=== PATIENT | male | born 1970 | race Caucasian/White ===

== ENCOUNTER 2018-08-01 16:27 | Emergency (ER) | payer OTHER ==
[~2018-08-01] VITALS: Ht 172.7 cm; Wt 90.7 kg
[~2018-08-01 16:27] MED LIST: AMLODIPINE BESY10 MG PO; ASPIR 8181 MG PO; ATIVAN1 MG PO; BACTRIM DS TAB1 EACH PO; CELEXA40 MG PO; CITALOPRAM HBR40 MG PO; CLONAZEPAM0.5 MG PO; CLONAZEPAM1 MG PO; COZAAR100 MG PO; CYCLOBENZAPRINE5 MG PO; DOXYCYCLINE HY100 MG PO; GABAPENTIN100 MG PO; GABAPENTIN300 MG PO; GABAPENTIN600 MG PO; HUMALOG100 UNIT/1 SUB-Q; HUMALOG100 UNIT/2 SUB-Q; HUMALOG100 UNITS/ IV; HUMALOG100 UNITS/ SUB-Q; IBUPROFEN600 MG PO; LAMOTRIGINE25 MG PO; LANTUS100 UNITS/ SUB-Q; LATUDA60 MG PO; LEVOTHYROXINE75 MCG PO; LORAZEPAM0.5 MG PO; LOSARTAN POTAS100 MG PO; METFORMIN HCL1000 MG PO; MINIPRESS1 MG PO; NAPROXEN500 MG PO; NEURONTIN300 MG PO; NICORETTE2 MG MM; NITROSTAT0.4 MG SL; NORVASC10 MG PO; ONDANSETRON ODT8 MG PO; PRAZOSIN HCL1 MG PO; PROVENTIL HFA6.7 GM INH; QUETIAPINE FUM100 MG PO; QUETIAPINE FUM300 MG PO; QUETIAPINE FUMA50 MG PO; SEROQUEL100 MG PO; SEROQUEL300 MG PO; TIROSINT75 MCG PO; TRIACTIN50 MG/5 ML PO; VENTOLIN HFA18 GM INH; ZITHROMAX250 MG PO; ZOFRAN ODT4 MG SL
--- OUTSIDE RECORDS SUMMARY | 2018-08-01 16:30 | XMS ---
PreManage Notification: PRANAY THOMSON Security Narrow Gauge Engineer Events No recent Security Events currently on file CRITERIA MET - Group Notification - [facility] Has Care Guidelines CARE PROVIDERS NON ESTABLISHED Primary Care Current PHONE: [phone] DR BERTO MAXWELL Primary Care 07/06/2016-07/06/2016 PHONE: [phone] Guidelines Source: [facility] Guidelines Date: 12/14/2016 Care Coordination: PLEASE CONTACT PATIENTS PCP OFFICE AND ASK TO HAVE COMMUNITY HEALTH WORKER COME SEE HIM IN THE ED IF DURING WEEKDAY OFFICE HOURS. [phone] . THEY HAVE BEEN TRYING TO REACH HIM TO HELP HIM WITH COMING TO SEE PCP AND SERVICES. ENCOURAGE PATIENT TO USE PCP FOR FOLLOW UP AND NON-EMERGENT PROBLEMS. PLEASE ASK CASE MANAGEMENT TO SEE THIS PATIENT IF AVAILABLE. Additional care guidelines exist for the following facilities: [facility] ( 05/02/2016 ) [facility] ( 11/02/2015 ) [facility] ( 03/02/2015 ) [place] VISIT COUNT (12 MO.) 1 JIMMY Phillips TOTAL 1 NOTE: Visits indicate total known visits. ED/UCC VISIT TRACKING (12 MO.) 08/01/2018 16:28 JIMMY [place] [place] TYPE: Emergency COMPLAINT: - HIGH BLOOD SUGAR INPATIENT VISIT TRACKING (12 MO.) No inpatient visits to display in this time frame [id number]
[2018-08-01] MEDS ORDERED: HUMALOG100 UNITS/ SUB-Q (17:45)
[2018-08-01] MEDS ORDERED: GLUCOPHAGE500 MG PO (17:45)
[2018-08-01] MEDS ORDERED: LANTUS100 UNITS/ SUB-Q (17:45)
[2018-08-01] MEDS ORDERED: NEURONTIN300 MG PO (17:45)
== END 2018-08-01 18:02 | disposition home or self-care (01) ==
LOC: ED 16:27
DX: E11.65 Type 2 diabetes mellitus with hyperglycemia (principal); E11.9 Type 2 diabetes mellitus without complications; F17.200 Nicotine dependence, unspecified, uncomplicated; Z88.0 Allergy status to penicillin; Z88.5 Allergy status to narcotic agent; Z79.899 Other long term (current) drug therapy; Z79.4 Long term (current) use of insulin; Z79.82 Long term (current) use of aspirin
CPT/HCPCS: 99283

== ENCOUNTER 2018-08-04 06:26 | Emergency (ER) | payer OTHER ==
[~2018-08-04] VITALS: Ht 172.7 cm; Wt 90.7 kg
[~2018-08-04 06:26] MED LIST changes: +GLUCOPHAGE500 MG PO
--- OUTSIDE RECORDS SUMMARY | 2018-08-04 06:30 | XMS ---
PreManage Notification: PRANAY THOMSON Security Restrictive Preparation Operator Events No recent Security Events currently on file CRITERIA MET - Group Notification - [facility] - Has Care Guidelines - [facility] - 2 Visits in 30 Days CARE PROVIDERS NON ESTABLISHED Primary Care Current PHONE: [phone] DR BERTO MAXWELL Primary Care 07/06/2016-07/06/2016 PHONE: [phone] Guidelines Source: [facility] Guidelines Date: 12/14/2016 Care Coordination: PLEASE CONTACT PATIENTS PCP OFFICE AND ASK TO HAVE COMMUNITY HEALTH WORKER COME SEE HIM IN THE ED IF DURING WEEKDAY OFFICE HOURS. [phone] . THEY HAVE BEEN TRYING TO REACH HIM TO HELP HIM WITH COMING TO SEE PCP AND SERVICES. ENCOURAGE PATIENT TO USE PCP FOR FOLLOW UP AND NON-EMERGENT PROBLEMS. PLEASE ASK CASE MANAGEMENT TO SEE THIS PATIENT IF AVAILABLE. Additional care guidelines exist for the following facilities: [facility] ( 05/02/2016 ) [facility] ( 11/02/2015 ) [place] ( 03/02/2015 ) Care History Medical/Surgical 08/02/2018 [facility] - PATIENT CONTACT NUMBER IS NOT VALID- PLEASE HAVE PATIENT PROVIDE UPDATED CONTACT INFORMATION. - PLEASE PROVIDE CHW CONTACT # [phone] TO HELP PATIENT ESTABLISH CARE WITH A PROVIDER. OR CALL CHW DURING BUSINESS HOURS AND CHW WILL COME VISIT WITH PATIENT IF CHW IS AVAILABLE. E.D. VISIT COUNT (12 MO.) 2 [facility]. TOTAL 2 NOTE: Visits indicate total known visits. ED/UCC VISIT TRACKING (12 MO.) 08/04/2018 06:27 [facility] [place] TYPE: Emergency COMPLAINT: - RT LEG PAIN 08/01/2018 16:28 [facility] [place] TYPE: Emergency COMPLAINT: - HIGH BLOOD SUGAR DIAGNOSES: - Other superintendent container terminal (current) drug therapy - Allergy status to narcotic agent status - superintendent container terminal (current) use of aspirin - superintendent container terminal (current) use of insulin - Allergy status to penicillin - Nicotine dependence, unspecified, uncomplicated - Type 2 diabetes mellitus with hyperglycemia - Type 2 diabetes mellitus without complications INPATIENT VISIT TRACKING (12 MO.) No inpatient visits to display in this time frame [email or web address]
[2018-08-04] MEDS ORDERED: CLEOCIN HCL300 MG PO (07:14)
== END 2018-08-04 07:27 | disposition home or self-care (01) ==
LOC: ED 06:26
DX: L03.115 Cellulitis of right lower limb (principal); I25.2 Old myocardial infarction; E11.9 Type 2 diabetes mellitus without complications; Z86.19 Personal history of other infectious and parasitic diseases; Z86.73 Personal history of transient ischemic attack (TIA), and 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 residual deficits; F41.9 Anxiety disorder, unspecified; F43.10 Post-traumatic stress disorder, unspecified; I10 Essential (primary) hypertension; E03.9 Hypothyroidism, unspecified; F17.200 Nicotine dependence, unspecified, uncomplicated; Z88.0 Allergy status to penicillin; Z88.5 Allergy status to narcotic agent; Z79.4 Long term (current) use of insulin; Z79.899 Other long term (current) drug therapy
CPT/HCPCS: 99283

== ENCOUNTER 2018-08-06 10:14 | Emergency (ER) | payer OTHER ==
[~2018-08-06] VITALS: Ht 172.7 cm; Wt 90.7 kg
[~2018-08-06 10:14] MED LIST changes: +CLEOCIN HCL300 MG PO
--- OUTSIDE RECORDS SUMMARY | 2018-08-06 10:18 | XMS ---
PreManage Notification: PRANAY THOMSON Security Architect Events No recent Security Events currently on file CRITERIA MET - Group Notification - [facility] - Has Care Guidelines - [facility] - 2 Visits in 30 Days CARE PROVIDERS NON ESTABLISHED Primary Care Current PHONE: [phone] DR BERTO MAXWELL Primary Care 07/06/2016-07/06/2016 PHONE: [phone] Guidelines Source: [facility] Guidelines Date: 12/14/2016 Care Coordination: PLEASE CONTACT PATIENTS PCP OFFICE AND ASK TO HAVE COMMUNITY HEALTH WORKER COME SEE HIM IN THE ED IF DURING WEEKDAY OFFICE HOURS. [phone] . THEY HAVE BEEN TRYING TO REACH HIM TO HELP HIM WITH COMING TO SEE PCP AND SERVICES. ENCOURAGE PATIENT TO USE PCP FOR FOLLOW UP AND NON-EMERGENT PROBLEMS. PLEASE ASK CASE MANAGEMENT TO SEE THIS PATIENT IF AVAILABLE. Additional care guidelines exist for the following facilities: [facility] ( 05/02/2016 ) [facility] ( 11/02/2015 ) [place] ( 03/02/2015 ) Care History Medical/Surgical 08/02/2018 [facility] - PATIENT CONTACT NUMBER IS NOT VALID- PLEASE HAVE PATIENT PROVIDE UPDATED CONTACT INFORMATION. - PLEASE PROVIDE CHW CONTACT # [phone] TO HELP PATIENT ESTABLISH CARE WITH A PROVIDER. OR CALL CHW DURING BUSINESS HOURS AND CHW WILL COME VISIT WITH PATIENT IF CHW IS AVAILABLE. E.D. VISIT COUNT (12 MO.) 3 [facility]. TOTAL 3 NOTE: Visits indicate total known visits. ED/UCC VISIT TRACKING (12 MO.) 08/06/2018 10:15 [facility] [place] TYPE: Emergency COMPLAINT: - CONSTIPATION 08/04/2018 06:27 [facility] [place] TYPE: Emergency COMPLAINT: - RT LEG PAIN 08/01/2018 16:28 [facility] [place] TYPE: Emergency COMPLAINT: - HIGH BLOOD SUGAR DIAGNOSES: - Other buttermaker (current) drug therapy - Allergy status to narcotic agent status - nursing home (current) use of aspirin - nursing home (current) use of insulin - Allergy status to penicillin - Nicotine dependence, unspecified, uncomplicated - Type 2 diabetes mellitus with hyperglycemia - Type 2 diabetes mellitus without complications INPATIENT VISIT TRACKING (12 MO.) No inpatient visits to display in this time frame [id number]
[2018-08-06] MEDS ORDERED: ENULOSE10 GM/15 M PO (17:16)
== END 2018-08-06 17:42 | disposition home or self-care (01) ==
LOC: ED 10:14
DX: K59.00 Constipation, unspecified (principal); I25.2 Old myocardial infarction; E11.9 Type 2 diabetes mellitus without complications; Z86.73 Personal history of transient ischemic attack (TIA), and 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 residual deficits; F43.10 Post-traumatic stress disorder, unspecified; F41.9 Anxiety disorder, unspecified; I10 Essential (primary) hypertension; E03.9 Hypothyroidism, unspecified; F17.200 Nicotine dependence, unspecified, uncomplicated; Z88.0 Allergy status to penicillin; Z88.5 Allergy status to narcotic agent; Z79.899 Other long term (current) drug therapy; Z79.4 Long term (current) use of insulin; Z79.82 Long term (current) use of aspirin
CPT/HCPCS: 74022; 99283-25

== ENCOUNTER 2018-08-19 12:08 | Emergency (ER) | payer OTHER ==
[~2018-08-19] VITALS: Ht 172.7 cm; Wt 90.7 kg
--- OUTSIDE RECORDS SUMMARY | ~2018-08-19 | XMS | Clinical Summary ---
Demographics + + + | Address | [address] | | | [place] [address] | + + + | Home Phone | | + + + | Preferred Language | Unknown | + + + | Marital Status | Single | + + + | Zoroastrianism Affiliation | BAP | + + + [...] Team Providers + +------+ + | Care Jalousie Installer Name | Role | Phone | + +------+ + | Anne Lew UNEMPLOYMENT CLAIMS ADJUDICATOR | PP | Unavailable | + +------+ + Source Comments WILLIAM is fully live on both [facility] Ambulatory and [facility] InPatient.[facility] Allergies No Known Allergies Current Medications + [...] | OHP | xxxxxxxx | Medica | [phone] [address] [address] | | | PLUS | | id | [phone] | [place] [address] | | | OPEN | | | [...] | derik | | | [phone] | + +--------+ +--------+ + +"
--- OUTSIDE RECORDS SUMMARY | ~2018-08-19 | XMS | Clinical Summary ---
Demographics + + + | Address | [address] | | | [place] [address] | + + + | Home Phone | | + + + | Preferred Language | Unknown | + + + | Marital Status | Single | + + + | Tenriism Affiliation | BAP | + + + [...] Team Providers + +------+ + | Care Target Trimmer Name | Role | Phone | + +------+ + | Anne Lew HOME HEALTH ASSISTANT | PP | Unavailable | + +------+ + Source Comments WILLIAM is fully live on both [facility] and [facility] In[facility] Allergies No Known Allergies Current Medications + [...] | OHP | xxxxxxxx | Medica | [phone] [address] [address] | | | PLUS | | id | [phone] | [place] [address] | | | OPEN | | | [...] | derik | | | [phone] | + +--------+ +--------+ + +"
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
--- OUTSIDE RECORDS SUMMARY | ~2018-08-19 | XMS | Clinical Summary ---
Demographics + + + | Address | [address] | | | [place] [address] | + + + | Home Phone | | + + + | Preferred Language | Unknown | + + + | Marital Status | Single | + + + | Mormonism Affiliation | [id number] | + + + | Race | Unknown | + + + | Ethnic Group | Unknown | + + + Author + + + | Author | [facility] | | | and [place] | + + + | Organization | [facility] | | | and [place] | + + + | Address | Unknown | + + + | Phone | Unavailable | + + + Support + + + + + | Name | Relationship | Address | Phone | + + + + + | None,Per Pt | ECON | [address] | | | | | [place] [address] | | + + + + + Care Team Providers + +------+ + | Care Route Manager Name | Role | Phone | + [...] | | | | | | uncontrolled ([facility]) | | | | | | | [...] | [employer] | MODA | [id number] | Medica | [phone] | | [...] | | al/Fam | | 1971 | [phone] | [place] | | | derik | | | [phone] | + +--------+ +--------+ + +
[~2018-08-19 12:08] MED LIST changes: +ENULOSE10 GM/15 M PO
--- OUTSIDE RECORDS SUMMARY | 2018-08-19 12:10 | XMS ---
PreManage Notification: PRANAY THOMSON Security Cell Efficiency Supervisor Events No recent Security Events currently on file CRITERIA MET - Group Notification - [facility] - Has Care Guidelines - [facility] - 2 Visits in 30 Days CARE PROVIDERS Enrique [facility]: Pulmonary Disease 08/06/2018-Current PHONE: Unknown NON ESTABLISHED Primary Care Current PHONE: [phone] DR BERTO MAXWELL Primary Care 07/06/2016-07/06/2016 PHONE: [phone] Guidelines Source: [facility] Guidelines Date: 12/14/2016 Care Coordination: PLEASE CONTACT PATIENTS PCP OFFICE AND ASK TO HAVE COMMUNITY HEALTH WORKER COME SEE HIM IN THE ED IF DURING WEEKDAY OFFICE HOURS. [phone] . THEY HAVE BEEN TRYING TO REACH HIM TO HELP HIM WITH COMING TO SEE PCP AND SERVICES. ENCOURAGE PATIENT TO USE PCP FOR FOLLOW UP AND NON-EMERGENT PROBLEMS. PLEASE ASK CASE MANAGEMENT TO SEE THIS PATIENT IF AVAILABLE. Additional care guidelines exist for the following facilities: [facility] ( 05/02/2016 ) [facility] ( 11/02/2015 ) [facility] ( 03/02/2015 ) Care History Medical/Surgical 08/06/2018 [facility] Patient has an Establishing Care Appointment with \T\Lauren at the Clinic on August 16 at 3:00 pm 08/06/2018 [facility] - PATIENT HAS AN APT TO ESTABLISH CARE WITH DR GEORGE ON 08/16/18 @ 3:00PM. - Patient is currently established with [facility]. If patient is seen in the ED during business hours. Please contact CHWs at [facility]. - Care Recommendation: This patient has had 5 or more Emergency Department visits in the last 12 months.\T\nbsp; Patient requires education on the scope and purpose of the ED as an acute care provider not a Primary Care Provider and should not be utilized for chronic conditions.\T\nbsp; These are guidelines and the provider should exercise clinical judgment when providing care. 08/02/2018 [facility] - PATIENT CONTACT NUMBER IS NOT VALID- PLEASE HAVE PATIENT PROVIDE UPDATED CONTACT INFORMATION. - PLEASE PROVIDE CHW CONTACT # [phone] TO HELP PATIENT ESTABLISH CARE WITH A PROVIDER. OR CALL CHW DURING BUSINESS HOURS AND CHW WILL COME VISIT WITH PATIENT IF CHW IS AVAILABLE. E.D. VISIT COUNT (12 MO.) [address] [facility] TOTAL 5 NOTE: Visits indicate total known visits. ED/UCC VISIT TRACKING (12 MO.) 08/19/2018 12:08 [facility] [place] TYPE: Emergency COMPLAINT: - R HIP ABSCESS 08/12/2018 07:34 [facility] [place] TYPE: Emergency COMPLAINT: - FALL DIAGNOSES: - Nicotine dependence, unspecified, uncomplicated - Personal history of other infectious and parasitic diseases - Hypothyroidism, unspecified - Allergy status to narcotic agent status - Fall on same level from slipping, tripping and stumbling with subsequent striking against unspecified object, initial encounter - ferry terminal supervisor (current) use of insulin - 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 therapy - Strain of muscle, fascia and tendon of lower back, initial encounter - Allergy status to penicillin - Old myocardial infarction - Low back pain - Other specified anxiety disorders - Type 2 diabetes mellitus without complications - Essential (primary) hypertension 08/06/2018 10:15 [facility] [place] TYPE: Emergency COMPLAINT: - CONSTIPATION DIAGNOSES: - Allergy status to penicillin - long-term (current) use of aspirin - Hypothyroidism, unspecified - Old myocardial infarction - Post-traumatic stress disorder, unspecified - long-term (current) use of insulin - Type 2 diabetes mellitus without complications - Personal history of transient ischemic attack (TIA), and 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 residual deficits - 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 therapy - Anxiety disorder, unspecified - Constipation, unspecified - Nicotine dependence, unspecified, uncomplicated - Essential (primary) hypertension - Allergy status to narcotic agent status 08/04/2018 06:27 [facility] [place] TYPE: Emergency COMPLAINT: - RT LEG PAIN DIAGNOSES: - Allergy status to narcotic agent status - Nicotine dependence, unspecified, uncomplicated - Post-traumatic stress disorder, unspecified - Allergy status to penicillin - Old myocardial infarction - ferry terminal supervisor (current) use of insulin - Personal history of other infectious and parasitic diseases - Personal history of transient ischemic attack (TIA), and 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 residual deficits - Essential (primary) hypertension - Anxiety disorder, unspecified - Other usp (current) drug therapy - Type 2 diabetes mellitus without complications - Cellulitis of right lower limb - Hypothyroidism, unspecified 08/01/2018 16:28 [facility] [place] TYPE: Emergency COMPLAINT: - HIGH BLOOD SUGAR DIAGNOSES: - 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 therapy - Allergy status to narcotic agent status - long-term (current) use of aspirin - long-term (current) use of insulin - Allergy status to penicillin - Nicotine dependence, unspecified, uncomplicated - Type 2 diabetes mellitus with hyperglycemia - Type 2 diabetes mellitus without complications INPATIENT VISIT TRACKING (12 MO.) No inpatient visits to display in this time frame [id number]
[2018-08-19] MEDS ORDERED: BACTRIM DS TAB1 EACH PO (13:44)
== END 2018-08-19 13:56 | disposition home or self-care (01) ==
LOC: ED 12:08
DX: L98.499 Non-pressure chronic ulcer of skin of other sites with unspecified severity (principal); B95.62 Methicillin resistant Staphylococcus aureus infection as the cause of diseases classified elsewhere; I25.2 Old myocardial infarction; E11.9 Type 2 diabetes mellitus without complications; Z86.19 Personal history of other infectious and parasitic diseases; Z86.73 Personal history of transient ischemic attack (TIA), and 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 residual deficits; F43.10 Post-traumatic stress disorder, unspecified; F41.9 Anxiety disorder, unspecified; I10 Essential (primary) hypertension; E03.9 Hypothyroidism, unspecified; F17.200 Nicotine dependence, unspecified, uncomplicated; Z88.0 Allergy status to penicillin; Z88.5 Allergy status to narcotic agent; Z79.4 Long term (current) use of insulin; Z79.899 Other long term (current) drug therapy; Z79.82 Long term (current) use of aspirin
CPT/HCPCS: 99282

== ENCOUNTER → 2018-09-03 | Emergency (ER) | payer OTHER ==
[~2018-09-03] VITALS: Ht 172.7 cm; Wt 90.7 kg
--- OUTSIDE RECORDS SUMMARY | ~2018-09-03 | XMS | Clinical Summary ---
Demographics + + + | Address | [address] | | | [place] [address] | + + + | Home Phone | | + + + | Preferred Language | Unknown | + + + | Marital Status | Single | + + + | Restorationist Affiliation | [id number] | + + + | Race | Unknown | + + + | Ethnic Group | Unknown | + + + Author + + + | Author | [facility] | | | and Melvinana | + + + | Organization | [facility] | | [...] [address]ardo | | | | | [place] [address] | | + + + + + Care Team Providers + +------+ + | Care Activities Attendant Name | Role | Phone | + [...] | | | | | | uncontrolled ([facility]) | | | | | | | [...] | [employer] | MODA | [id number] | [employer]ica | [phone] | | [...] | | al/Fam | | 1971 | [phone] | [place] | | | derik | | | [phone] | [phone] | + +--------+ +--------+ + +
--- OUTSIDE RECORDS SUMMARY | ~2018-09-03 | XMS | Clinical Summary ---
Demographics + + + | Address | [address] | | | [place] [address] | + + + | Home Phone | | + + + | Preferred Language | Unknown | + + + | Marital Status | Single | + + + | Caodaism Affiliation | [id number] | + + + [...] Eduardo | | | | | [place] [address] | | + + + + + Care Team Providers + +------+ + | Care Psychiatric Social Worker Supervisor Name | Role | Phone | + [...] | | | | | | uncontrolled ([facility]) | | | | | [...] | [employer] | MODA | [id number] | Medica | [phone] | | [...] | | al/Fam | | 1971 | [phone] | [place] | | | derik | | | [phone] | [phone] | + +--------+ +--------+ + +
--- OUTSIDE RECORDS SUMMARY | ~2018-09-03 | XMS | Clinical Summary ---
Demographics + + + | Address | [address] | | | [place] [address] | + + + | Home Phone | | + + + | Preferred Language | Unknown | + + + | Marital Status | Single | + + + | Judaism Affiliation | BAP | + + + [...] Team Providers + +------+ + | Care Superintendent Distribution Name | Role | Phone | + +------+ + | Anne Lew MINING TEACHER | PP | Unavailable | + +------+ + Source Comments WILLIAM is fully live on both [facility] Ambulatory and [facility] InPatient.[facility] Allergies No Known Allergies [...] | OHP | xxxxxxxx | Medica | [phone] | [address] [address] | | | PLUS | | id | [phone] | [place] [address] | | | OPEN | | | [...] | derik | | | [phone] | [phone] | + +--------+ +--------+ + +"
--- OUTSIDE RECORDS SUMMARY | ~2018-09-03 | XMS | Clinical Summary ---
Demographics + + + | Address | [address] | | | [place] [address] | + + + | Home Phone | | + + + | Preferred Language | Unknown | + + + | Marital Status | Single | + + + | Confucianist Affiliation | BAP | + + + [...] Team Providers + +------+ + | Care Studio Potter Name | Role | Phone | + +------+ + | Anne Lew INKER AND OPAQUER | PP | Unavailable | + +------+ + Source Comments WILLIAM is fully live on both [facility] Amb[facility] and [facility] InPatient.[facility] Allergies No Known [...] | OHP | xxxxxxxx | Medica | [phone] | [address] [address] | | | PLUS | | id | [phone] | [place] [address] | | | OPEN | | | [...] | derik | | | [phone] | [phone] | + +--------+ +--------+ + +"
--- OUTSIDE RECORDS SUMMARY | 2018-09-03 16:06 | XMS ---
PreManage Notification: PRANAY THOMSON Security Wastewater Manager Events No recent Security Events currently on file CRITERIA MET - Group Notification - 6 ED Visits in 6 Months - [facility] - Has Care Guidelines - [facility] - 2 Visits in 30 Days CARE PROVIDERS Enrique George Internal Medicine: Pulmonary Disease 08/06/2018-Current PHONE: Unknown NON ESTABLISHED Primary Care Current PHONE: [phone] DR BERTO MAXWELL Primary Care 07/06/2016-07/06/2016 PHONE: [phone] Guidelines Source: [facility] Guidelines Date: 12/14/2016 Care Coordination: PLEASE CONTACT PATIENTS PCP OFFICE AND ASK TO HAVE COMMUNITY HEALTH WORKER COME SEE HIM IN THE ED IF DURING WEEKDAY OFFICE HOURS. [phone] . THEY HAVE BEEN TRYING TO REACH HIM TO HELP HIM WITH COMING TO SEE PCP AND SERVICES. ENCOURAGE PATIENT TO USE PCP FOR FOLLOW UP AND NON-EMERGENT PROBLEMS. PLEASE ASK CASE MANAGEMENT TO SEE THIS PATIENT IF AVAILABLE. Additional care guidelines exist for the following facilities: [facility] ( 05/02/2016 ) [facility] ( 11/02/2015 ) [facility] ( 03/02/2015 ) Care History Medical/Surgical 08/06/2018 [facility] - PATIENT HAS AN APT TO ESTABLISH CARE WITH DR GEORGE ON 08/16/18 @ 3:00PM. - Patient is currently established with [facility]. If patient is seen in the ED during business hours. Please contact CHWs at [facility]. - Care Recommendation: This patient has had 5 or more Emergency Department visits in the last 12 months.\T\nbsp; Patient requires education on the scope and purpose of the ED as an acute care provider not a Primary Care Provider and should not be utilized for chronic conditions.\T\nbsp; These are guidelines and the provider should exercise clinical judgment when providing care. 08/02/2018 [facility] - PATIENT CONTACT NUMBER IS NOT VALID- PLEASE HAVE PATIENT PROVIDE UPDATED CONTACT INFORMATION. - PLEASE PROVIDE CHW CONTACT # [phone] TO HELP PATIENT ESTABLISH CARE WITH A PROVIDER. OR CALL CHW DURING BUSINESS HOURS AND CHW WILL COME VISIT WITH PATIENT IF CHW IS AVAILABLE. E.D. VISIT COUNT (12 MO.) 6 [facility] TOTAL 6 NOTE: Visits indicate total known visits. ED/UCC VISIT TRACKING (12 MO.) 09/03/2018 15:35 [facility] [place] TYPE: Emergency COMPLAINT: - BLOOD SUGAR PROBLEM 08/19/2018 12:08 [facility] [place] TYPE: Emergency COMPLAINT: - R HIP ABSCESS DIAGNOSES: - Anxiety disorder, unspecified - Pain in right hip - Personal history of other infectious and parasitic diseases - Hypothyroidism, unspecified - Post-traumatic stress disorder, unspecified - nursing home (current) use of insulin - Allergy status to penicillin - Essential (primary) hypertension - Other intermediate card tender (current) drug therapy - Non-pressure chronic ulcer of skin of other sites with unspecified severity - Type 2 diabetes mellitus without complications - Allergy status to narcotic agent status - Nicotine dependence, unspecified, uncomplicated - Methicillin resistant Staphylococcus aureus infection as the cause of diseases classified elsewhere - Personal history of transient ischemic attack (TIA), and 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 residual deficits - Old myocardial infarction - salvage determiner (current) use of aspirin 08/12/2018 07:34 [facility] [place] TYPE: Emergency COMPLAINT: - FALL DIAGNOSES: - Nicotine dependence, unspecified, uncomplicated - Personal history of other infectious and parasitic diseases - Hypothyroidism, unspecified - Allergy status to narcotic agent status - Fall on same level from slipping, tripping and stumbling with subsequent striking against unspecified object, initial encounter - salvage determiner (current) use of insulin - Other intermediate card tender (current) drug therapy - Strain of muscle, fascia and tendon of lower back, initial encounter - Allergy status to penicillin - Old myocardial infarction - Low back pain - Other specified anxiety disorders - Type 2 diabetes mellitus without complications - Essential (primary) hypertension 08/06/2018 10:15 [facility] [place] TYPE: Emergency COMPLAINT: - CONSTIPATION DIAGNOSES: - Allergy status to penicillin - nursing home (current) use of aspirin - Hypothyroidism, unspecified - Old myocardial infarction - Post-traumatic stress disorder, unspecified - salvage determiner (current) use of insulin - Type 2 diabetes mellitus without complications - Personal history of transient ischemic attack (TIA), and 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 residual deficits - Other fpc (current) drug therapy - Anxiety disorder, unspecified [...] to penicillin - Old myocardial infarction - salvage determiner (current) use of insulin - Personal history of other infectious and parasitic diseases - Personal history of transient ischemic attack (TIA), and 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 residual deficits - Essential (primary) hypertension - Anxiety disorder, unspecified - Other intermediate card tender (current) drug therapy - Type 2 diabetes mellitus without complications - Cellulitis of right lower limb - Hypothyroidism, unspecified 08/01/2018 16:28 [facility] [place] TYPE: Emergency COMPLAINT: - HIGH BLOOD SUGAR DIAGNOSES: - Other fpc (current) drug therapy - Allergy status to narcotic agent status - salvage determiner (current) use of aspirin - salvage determiner (current) use of insulin - Allergy status to penicillin - Nicotine dependence, unspecified, uncomplicated - Type 2 diabetes mellitus with hyperglycemia - Type 2 diabetes mellitus without complications INPATIENT VISIT TRACKING ( MO.) No inpatient visits to display in this time frame [id number]
== END ==
LOC: ED 15:34
DX: E11.65 Type 2 diabetes mellitus with hyperglycemia (principal); I25.2 Old myocardial infarction; F43.10 Post-traumatic stress disorder, unspecified; Z86.73 Personal history of transient ischemic attack (TIA), and 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 residual deficits; I10 Essential (primary) hypertension; E03.9 Hypothyroidism, unspecified; F17.200 Nicotine dependence, unspecified, uncomplicated; Z88.0 Allergy status to penicillin; Z88.5 Allergy status to narcotic agent; Z79.4 Long term (current) use of insulin; Z79.82 Long term (current) use of aspirin; Z79.899 Other long term (current) drug therapy
CPT/HCPCS: 80053; 81001; 82010; 82803; 85025; 96361; 96374; 96376; 99283-25; G0480; J1815; J7030

== ENCOUNTER 2018-10-05 08:19 | Emergency (ER) | payer OTHER ==
[~2018-10-05] VITALS: Ht 172.7 cm; Wt 90.7 kg
--- OUTSIDE RECORDS SUMMARY | ~2018-10-05 | XMS | Clinical Summary ---
Demographics + + + | Address | [address] | | | [place] [address] | + + + | Home Phone | | + + + | Preferred Language | Unknown | + + + | Marital Status | Single | + + + | Hoahaoism Affiliation | BAP | + + + | Race | White | + + + | Ethnic Group | Not or | + + + Author + + + | Author | [facility] | + + + | Organization | [facility] | + + + | Address | Unknown | + + + | Phone | Unavailable | + + + Support + + +---------+ + | Name | Relationship | Address | Phone | + + +---------+ + | None, None | ECON | Unknown | Unavailable | + + +---------+ + Care Team Providers + +------+ + | Care Dna Analyst Name | Role | Phone | + +------+ + | Anne Lew SALESPERSON WOMEN'S DRESSES | PP | Unavailable | + +------+ + Source Comments WILLIAM is fully live on both [facility] Amb[facility] and [facility] InPatient.[facility] Allergies No Known Allergies Current Medications + + +--------+---------+------+------+-------+ | Prescription | Sig. | Disp. | Refills | Star | End | Statu | | | | | | t | Date | s | | | | | | Date | | | + + +--------+---------+------+------+-------+ | insulin glargine | Inject 40 Units | | | | | Activ | | 100 unit/mL | under the skin | | | | | e | | subcutaneous | (SUBC) once daily in | | | | | | | solution | the morning. | | | | | | + + +--------+---------+------+------+-------+ | insulin lispro 100 | Inject 8-10 Units | | | | | Activ | | unit/mL | under the skin | | | | | e | | subcutaneous | (SUBC) three times | | | | | | | solution | daily before meals. | | | | | | + + +--------+---------+------+------+-------+ | losartan 100 mg | Take 100 mg by mouth | | | | | Activ | | oral tablet | once daily. | | | | | e | + + +--------+---------+------+------+-------+ | amLODIPine 10 mg | Take 10 mg by mouth | | | | | Activ | | oral tablet | once daily. | | | | | e | + + +--------+---------+------+------+-------+ | levothyroxine 75 | Take 75 mcg by mouth | | | | | Activ | | mcg oral tablet | once daily. | | | | | e | + + +--------+---------+------+------+-------+ | aspirin chewable | Take 81 mg by mouth | | | | | Activ | | 81 mg oral | once daily. | | | | | e | | tablet,chewable | | | | | | | + + +--------+---------+------+------+-------+ | gabapentin 100 mg | Take 900 mg by mouth | | | | | Activ | | oral capsule | two times daily. | | | | | e | + + +--------+---------+------+------+-------+ | QUEtiapine 300 mg | Take 300 mg by mouth | | | | | Activ | | oral tablet | once daily at | | | | | e | | | bedtime. | | | | | | + + +--------+---------+------+------+-------+ | clonazePAM 1 mg | Take 1 mg by mouth | | | | | Activ | | oral tablet | three times daily. | | | | | e | + + +--------+---------+------+------+-------+ | citalopram 40 mg | Take 40 mg by mouth | | | | | Activ | | oral tablet | once daily. | | | | | e | + + +--------+---------+------+------+-------+ | oxyCODONE, | Take 1-2 tablets by | 20 | 0 | 05/0 | | Activ | | immediate release, 5 | mouth every six | tablet | | 02/22 | | e | | mg oral tablet | hours as needed. | | | 15 | | | + + +--------+---------+------+------+-------+ Active Problems + + + | Problem | Noted Date | + + + | Abscess of right hand | 10/10/2014 | + + + Social History + +-------+ +--------+------+ | Tobacco Use | Types | Packs/Day | Years | Date | | | | | Used | | + +-------+ +--------+------+ | Current Every Day | | | | | | Smoker | | | | | + +-------+ +--------+------+ + +---+---+---+ | Smokeless Tobacco: | | | | | Current User | | | | + +---+---+---+ + + | Tobacco Cessation: Ready to Quit: No; Counseling Given: Yes | + + + + +---------+ + | Alcohol Use | Drinks/We | oz/Week | Comments | | | ek | | | + + +---------+ + | Yes | | | occasional | + + +---------+ + + + + | Sex Assigned at | Date Recorded | | | | + + + | Not on file | | + + + Last Filed Vital Signs + + + + | Vital Sign | Reading | Time Taken | + + + + | Blood Pressure | 128/83 | 10/17/2014 3:32 PM PDT | + + + + | Pulse | 57 | 10/17/2014 3:32 PM PDT | + + + + | Temperature | 36.8 C (98.2 F) | 10/17/2014 3:32 PM PDT | + + + + | Respiratory Rate | 16 | 10/17/2014 3:32 PM PDT | + + + + | Oxygen Saturation | 95% | 10/17/2014 3:32 PM PDT | + + + + | Inhaled Oxygen | - | - | | Concentration | | | + + + + | Weight | 99.8 kg (220 lb) | 10/17/2014 1:36 PM PDT | + + + + | Height | - | - | + + + + | Body Mass Index | - | - | + + + + Plan of Treatment Not on file Results Not on filefrom Last 3 Months Insurance + +--------+ +--------+ + + | Payer | Benefi | Subscriber | Type | Phone | Address | | | t Plan | ID | | | | | | / | | | | | | | Group | | | | | + +--------+ +--------+ + + | [place] | OHP | xxxxxxxx | Med[employer] | [phone] [address] [address] | | | PLUS | | id | [phone] | [place] [address] | | | OPEN | | | | | | | CARD | | | | | + +--------+ +--------+ + + + +--------+ +--------+ + + | Guarantor Name | Accoun | Relation to | Date | Phone | Billing Address | | | t Type | Patient | of | | | | | | | | | | + +--------+ +--------+ + + | [employer] | Person | Self [birth year] Home: | [address] | | | al/Fam | | 1971 | [phone] | [address] [place] | | | [place] | | | [phone] | [phone] | + +--------+ +--------+ + +"
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
--- OUTSIDE RECORDS SUMMARY | ~2018-10-05 | XMS | Clinical Summary ---
Demographics + + + | Address | [address] | | | [place] [address] | + + + | Home Phone | | + + + | Preferred Language | Unknown | + + + | Marital Status | Single | + + + | Roman Catholic Affiliation | 1009 | + + + | Race | Unknown | + + + | Ethnic Group | Unknown | + + + Author + + + | Author | [facility] | | | and [place] | + + + | Organization | [facility] | | | and [place] | + + + | Address | Unknown | + + + | Phone | Unavailable | + + + Support + + + + + | Name | Relationship | Address | Phone | + + + + + | None,Per Pt | ECON | [address] | | | | | [place] [address] | | + + + + + Care Team Providers + +------+ + | Care Title I Director Name | Role | Phone | + [...] | | | | | | uncontrolled ([facility]) | | | | | | | [...] | [employer] | MODA | [id number] | | [phone] | | Medica | [...] preethi/Cl | | 1971 | [phone] | [facility] [place] | | | derik | | | 4 ([place]) | [address] | + +--------+ +--------+ + + Advance Directives Patient has advance care planning documents on file. For more information, please contact:[facility] and [facility] [place] [address]
--- OUTSIDE RECORDS SUMMARY | ~2018-10-05 | XMS | Clinical Summary ---
Demographics + + + | Address | [address] | | | [place] [address] | + + + | Home Phone | | + + + | Preferred Language | Unknown | + + + | Marital Status | Single | + + + | Evangelical Affiliation | BAP | + + + [...] Team Providers + +------+ + | Care Ice Skating Instructor Name | Role | Phone | + +------+ + | Anne Lew ASPHALT HEATER OPERATOR | PP | Unavailable | + +------+ + Source Comments WILLIAM is fully live on both [facility] Ambulatory and [facility] InPatient.[facility] Allergies No Known Allergies Current Medications [...] | OHP | [phone] | Medica | [phone] [address] [address] | | | PLUS | | id | [phone] | [place] [address] | | | OPEN | | | [...] | derik | | | [phone] | + +--------+ +--------+ + +"
--- OUTSIDE RECORDS SUMMARY | 2018-10-05 08:22 | XMS ---
PreManage Notification: PRANAY THOMSON Security Nurse Rn Bsn Events No recent Security Events currently on file CRITERIA MET - Group Notification - 6 ED Visits in 6 Months - [facility] - Has Care Guidelines CARE PROVIDERS Enrique George Internal Medicine: Pulmonary Disease 08/06/2018-Current PHONE: Unknown NON ESTABLISHED Primary Care Current PHONE: [phone] DR BERTO MAXWELL Primary Care 07/06/2016-07/06/2016 PHONE: [phone] Guidelines Source: [facility] Guidelines Date: 12/14/2016 Care Coordination: PLEASE CONTACT PATIENTS PCP OFFICE AND ASK TO HAVE COMMUNITY HEALTH WORKER COME SEE HIM IN THE ED IF DURING WEEKDAY OFFICE HOURS. [phone] . THEY HAVE BEEN TRYING TO REACH HIM TO HELP HIM WITH COMING TO SEE PCP AND SERVICES. ENCOURAGE PATIENT TO USE PCP FOR FOLLOW UP AND NON-EMERGENT PROBLEMS. PLEASE ASK CASE MANAGEMENT TO SEE THIS PATIENT IF AVAILABLE. Additional care guidelines exist for the following facilities: [facility] ( 05/02/2016 ) [facility] ( 11/02/2015 ) [facility] ( 03/02/2015 ) Care History Medical/Surgical 08/06/2018 [facility] - PATIENT HAS AN APT TO ESTABLISH CARE WITH DR GEORGE ON 08/16/18 @ 3:00PM. - Patient is currently established with [facility]. If patient is seen in the ED during business hours. Please contact CHWs at [facility]. - Care Recommendation: This patient has had [...] INFORMATION. - PLEASE PROVIDE CHW CONTACT # [phone] TO HELP PATIENT ESTABLISH CARE WITH A PROVIDER. OR CALL CHW DURING BUSINESS HOURS AND CHW WILL COME VISIT WITH PATIENT IF CHW IS AVAILABLE. E.D. VISIT COUNT (12 MO.) 7 [facility] TOTAL 7 NOTE: Visits indicate total known visits. ED/UCC VISIT TRACKING (12 MO.) 10/05/2018 08:20 [facility] [place] TYPE: Emergency COMPLAINT: - CONSTIPATION 09/03/2018 15:35 [facility] [place] TYPE: Emergency COMPLAINT: - BLOOD SUGAR PROBLEM DIAGNOSES: - Nicotine dependence, unspecified, uncomplicated - Hypothyroidism, unspecified - Essential (primary) hypertension - Type 2 diabetes mellitus with hyperglycemia - emt intermediate (current) use of aspirin - emt intermediate (current) use of insulin - Old myocardial infarction - Other penitentiary (current) drug therapy - Allergy status to narcotic agent status - Personal history of transient ischemic attack (TIA), and 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 residual deficits - Allergy status to penicillin - Post-traumatic stress disorder, unspecified 08/19/2018 12:08 [facility] [place] TYPE: Emergency COMPLAINT: - R HIP ABSCESS DIAGNOSES: - Anxiety disorder, unspecified - Pain in right hip - Personal history of other infectious and parasitic diseases - Hypothyroidism, unspecified - Post-traumatic stress disorder, unspecified - [facility] (current) use of insulin - Allergy status to penicillin - Essential (primary) hypertension - Other penitentiary (current) drug therapy - Non-pressure chronic ulcer [...] residual deficits - Old myocardial infarction - emt intermediate (current) use of aspirin 08/12/2018 07:34 [facility] [place] TYPE: Emergency COMPLAINT: - FALL DIAGNOSES: - Nicotine dependence, unspecified, uncomplicated - Personal history of other infectious and parasitic diseases - Hypothyroidism, unspecified - Allergy status to narcotic agent status - Fall on same level from slipping, tripping and stumbling with subsequent striking against unspecified object, initial encounter - [facility] (current) use of insulin - Other penitentiary (current) drug therapy - Strain of muscle, fascia and tendon of lower back, initial encounter - Allergy status to penicillin - Old myocardial infarction - Low back pain - Other specified anxiety disorders - Type 2 diabetes mellitus without complications - Essential (primary) hypertension 08/06/2018 10:15 [facility] [place] TYPE: Emergency COMPLAINT: - CONSTIPATION DIAGNOSES: - Allergy status to penicillin - emt intermediate (current) use of aspirin - Hypothyroidism, unspecified - Old myocardial infarction - Post-traumatic stress disorder, unspecified - emt intermediate (current) use of insulin - Type 2 diabetes mellitus without complications - Personal history of transient ischemic attack (TIA), and 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 residual deficits - Other dedicated intermodal truck driver (current) drug therapy - [...] to penicillin - Old myocardial infarction - [facility] (current) use of insulin - Personal history of other infectious and parasitic diseases - Personal history of transient ischemic attack (TIA), and 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 residual deficits - Essential (primary) hypertension - Anxiety disorder, unspecified - Other penitentiary (current) drug therapy - Type 2 diabetes mellitus without complications - Cellulitis of right lower limb - Hypothyroidism, unspecified 08/01/2018 16:[address] [facility] [place] TYPE: Emergency COMPLAINT: - HIGH BLOOD SUGAR DIAGNOSES: - Other penitentiary (current) drug therapy - Allergy status to narcotic agent status - emt intermediate (current) use of aspirin - emt intermediate (current) use of insulin - Allergy status to penicillin - Nicotine dependence, unspecified, uncomplicated - Type 2 diabetes mellitus with hyperglycemia - Type 2 diabetes mellitus without complications INPATIENT VISIT TRACKING (12 MO.) No inpatient visits to display in this time frame [id number]
== END 2018-10-05 10:07 | disposition home or self-care (01) ==
LOC: ED 08:19
DX: K59.00 Constipation, unspecified (principal); I25.2 Old myocardial infarction; E11.9 Type 2 diabetes mellitus without complications; Z86.73 Personal history of transient ischemic attack (TIA), and 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 residual deficits; F43.10 Post-traumatic stress disorder, unspecified; E03.9 Hypothyroidism, unspecified; Z86.19 Personal history of other infectious and parasitic diseases; F17.200 Nicotine dependence, unspecified, uncomplicated; Z88.0 Allergy status to penicillin; Z88.5 Allergy status to narcotic agent; Z79.84 Long term (current) use of oral hypoglycemic drugs; Z79.4 Long term (current) use of insulin; Z79.82 Long term (current) use of aspirin; Z79.899 Other long term (current) drug therapy
CPT/HCPCS: 99283

== ENCOUNTER 2018-11-21 16:02 | Emergency (ER) | payer OTHER ==
[~2018-11-21] VITALS: Ht 172.7 cm; Wt 90.7 kg
--- OUTSIDE RECORDS SUMMARY | 2018-11-21 16:04 | XMS ---
PreManage Notification: PRANAY THOMSON Security Barrel Painter Events No recent Security Events currently on file CRITERIA MET - Group Notification - 6 ED Visits in 6 Months - [facility] - Has Care Guidelines - [facility] - 2 Visits in 30 Days CARE PROVIDERS Enrique George Internal Medicine: Pulmonary Disease 08/06/2018-Current PHONE: Unknown NON ESTABLISHED Primary Care Current PHONE: [phone] DR BERTO MAXWELL Primary Care 07/06/2016-07/06/2016 PHONE: [phone] Guidelines Source: [facility] Guidelines Date: 12/14/2016 Care Coordination: PLEASE CONTACT PATIENTS PCP OFFICE AND ASK TO HAVE COMMUNITY HEALTH WORKER COME SEE HIM IN THE ED IF DURING WEEKDAY OFFICE HOURS. [phone] . THEY HAVE BEEN TRYING TO REACH HIM TO HELP HIM WITH COMING TO SEE PCP AND SERVICES. ENCOURAGE PATIENT TO USE PCP FOR FOLLOW UP AND NON-EMERGENT PROBLEMS. PLEASE ASK CASE MANAGEMENT TO SEE THIS PATIENT IF AVAILABLE. Additional care guidelines exist for the following facilities: [facility] ( 10/22/2018 ) [facility] ( 05/02/2016 ) [facility] ( 11/02/2015 ) [facility] ( 03/02/2015 ) Care History Medical/Surgical 08/06/2018 [facility] - PATIENT HAS AN APT TO ESTABLISH CARE WITH DR GEORGE ON 08/16/18 @ 3:00PM. - Patient is currently established with [facility]. If patient is seen in the ED during business hours. Please contact CHWs at [facility]. - Care Recommendation: This patient has had 5 or more Emergency Department visits in the last 12 months.\T\nbsp; Patient requires education on the scope and purpose of the ED as an acute care provider not a Primary Care Provider and should not be utilized for chronic conditions.\T\nbsp; These are guidelines and the provider should exercise clinical judgment when providing care. 08/02/2018 [facility] - PATIENT CONTACT NUMBER IS NOT VALID- PLEASE HAVE PATIENT PROVIDE UPDATED CONTACT INFORMATION. - PLEASE PROVIDE CHW CONTACT # [phone] TO HELP PATIENT ESTABLISH CARE WITH A PROVIDER. OR CALL CHW DURING BUSINESS HOURS AND CHW WILL COME VISIT WITH PATIENT IF CHW IS AVAILABLE. E.D. VISIT COUNT (12 MO[address] [facility] [place] TOTAL 11 NOTE: Visits indicate total known visits. ED/UCC VISIT TRACKING (12 MO.) 11/21/2018 16:03 [facility] [place] TYPE: Emergency COMPLAINT: - URINE PROBLEM,HEADACHE 10/25/2018 09:43 [place] [place] TYPE: Emergency DIAGNOSES: 0. HEADACHE DIZZINESS 10/21/2018 18:44 [facility]: Emergency DIAGNOSES: 0. SINUS PAIN AND PRESSURE CONGESTION 10/19/2018 15:45 [facility] [place] [facility]: Emergency DIAGNOSES: 0. ABSCESS IN NOSE 10/05/2018 08:[address] [facility] [place] TYPE: Emergency COMPLAINT: - CONSTIPATION DIAGNOSES: - care home (current) use of aspirin - Nicotine dependence, unspecified, uncomplicated - Personal history of other infectious and parasitic diseases - Post-traumatic stress disorder, unspecified - Type 2 diabetes mellitus without complications - Constipation, unspecified - Allergy status to penicillin - Allergy status to narcotic agent status - Old myocardial infarction - care home (current) use of oral hypoglycemic drugs - Hypothyroidism, unspecified - exterminator helper termite (current) use of insulin - Personal history of transient ischemic attack (TIA), and 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 residual deficits - Other longwall foreman (current) drug therapy 09/03/2018 15:35 [facility] [place] TYPE: Emergency COMPLAINT: - BLOOD SUGAR PROBLEM DIAGNOSES: - Nicotine dependence, unspecified, uncomplicated - Hypothyroidism, unspecified - Essential (primary) hypertension - Type 2 diabetes mellitus with hyperglycemia - care home (current) use of aspirin - exterminator helper termite (current) use of insulin - Old myocardial infarction - Other fpc (current) drug therapy - [...] unspecified - Post-traumatic stress disorder, unspecified - exterminator helper termite (current) use of insulin - Allergy status to penicillin - Essential (primary) hypertension - Other longwall foreman (current) drug therapy - Non-pressure chronic ulcer [...] residual deficits - Old myocardial infarction - care home (current) use of aspirin 08/12/2018 07:34 [facility] [place] TYPE: Emergency COMPLAINT: - FALL DIAGNOSES: - Nicotine dependence, unspecified, uncomplicated - Personal history of other infectious and parasitic diseases - Hypothyroidism, unspecified - Allergy status to narcotic agent status - Fall on same level from slipping, tripping and stumbling with subsequent striking against unspecified object, initial encounter - exterminator helper termite (current) use of insulin - Other longwall foreman (current) drug therapy - Strain of muscle, fascia and tendon of lower back, initial encounter - Allergy status to penicillin - Old myocardial infarction - Low back pain - Other specified anxiety disorders - Type 2 diabetes mellitus without complications - Essential (primary) hypertension 08/06/2018 10:15 [facility] [place] TYPE: Emergency COMPLAINT: - CONSTIPATION DIAGNOSES: - Allergy status to penicillin - care home (current) use of aspirin - Hypothyroidism, unspecified - Old myocardial infarction - Post-traumatic stress disorder, unspecified - exterminator helper termite (current) use of insulin - Type 2 diabetes mellitus without complications - Personal history of transient ischemic attack (TIA), and 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 residual deficits - Other longwall foreman (current) drug therapy - Anxiety disorder, unspecified [...] to penicillin - Old myocardial infarction - care home (current) use of insulin - Personal history of other infectious and parasitic diseases - Personal history of transient ischemic attack (TIA), and 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 residual deficits - Essential (primary) hypertension - Anxiety disorder, unspecified - Other longwall foreman (current) drug therapy - Type 2 diabetes mellitus without complications - Cellulitis of right lower limb - Hypothyroidism, unspecified 08/01/2018 16:[address] [facility] [place] TYPE: Emergency COMPLAINT: - HIGH BLOOD SUGAR DIAGNOSES: - Other fpc (current) drug therapy - Allergy status to narcotic agent status - exterminator helper termite (current) use of aspirin - care home (current) use of insulin - Allergy status to penicillin - Nicotine dependence, unspecified, uncomplicated - Type 2 diabetes mellitus with hyperglycemia - Type 2 diabetes mellitus without complications INPATIENT VISIT TRACKING (12 MO.) No inpatient visits to display in this time frame [email or web address]
== END 2018-11-21 19:21 | disposition home or self-care (01) ==
LOC: ED 16:02
DX: E11.65 Type 2 diabetes mellitus with hyperglycemia (principal); I25.2 Old myocardial infarction; I10 Essential (primary) hypertension; F17.200 Nicotine dependence, unspecified, uncomplicated; E03.9 Hypothyroidism, unspecified; F41.9 Anxiety disorder, unspecified; Z86.73 Personal history of transient ischemic attack (TIA), and 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 residual deficits; Z88.0 Allergy status to penicillin; Z88.5 Allergy status to narcotic agent; Z79.82 Long term (current) use of aspirin; Z79.899 Other long term (current) drug therapy; Z79.4 Long term (current) use of insulin
CPT/HCPCS: 81001; 99283; 99406; J1815

== ENCOUNTER 2018-11-28 17:23 | Emergency (ER) | payer OTHER ==
[~2018-11-28] VITALS: Ht 172.7 cm; Wt 90.7 kg
--- OUTSIDE RECORDS SUMMARY | 2018-11-28 17:26 | XMS ---
PreManage Notification: PRANAY THOMSON [employer] Events No recent Security Events currently on file CRITERIA MET - Group Notification - 6 ED Visits in 6 Months - [facility] - Has Care Guidelines - [facility] - 2 Visits in 30 Days CARE PROVIDERS Enrique George Internal Medicine: Pulmonary Disease 08/06/2018-Current PHONE: Unknown NON ESTABLISHED Primary Care Current PHONE: [phone] DR BERTO MAXWELL Primary Care 07/06/2016-07/06/2016 PHONE: [phone] Guidelines Source: [facility] Guidelines Date: 12/14/2016 Care Coordination: PLEASE CONTACT PATIENTS PCP OFFICE AND ASK TO HAVE COMMUNITY HEALTH WORKER COME SEE HIM IN THE ED IF DURING WEEKDAY OFFICE HOURS. [phone] . THEY HAVE BEEN TRYING TO REACH HIM TO HELP HIM WITH COMING TO SEE PCP AND SERVICES. ENCOURAGE PATIENT TO USE PCP FOR FOLLOW UP AND NON-EMERGENT PROBLEMS. PLEASE ASK CASE MANAGEMENT TO SEE THIS PATIENT IF AVAILABLE. Additional care guidelines exist for the following facilities: [facility] ( 10/22/2018 ) [facility] ( 05/02/2016 ) [facility] ( 11/02/2015 ) [facility] ( 03/02/2015 ) Care History Medical/Surgical 08/06/2018 [facility] - PATIENT HAS AN APT TO ESTABLISH CARE WITH DR GEORGE ON 08/16/18 @ 3:00PM. - Patient is currently established with [facility]. If patient is seen in the ED during business hours. Please contact CHWs at [facility]. - Care Recommendation: This patient has had 5 or more Emergency Department visits in the last 12 months.\T\nbsp; Patient requires education on the scope and purpose of the ED as an acute care provider not a Primary Care Provider and should not be utilized for chronic conditions.\T\nbsp; These are guidelines and the provider should exercise clinical judgment when providing care. 08/02/2018 [facility] - PATIENT CONTACT NUMBER IS NOT VALID- PLEASE HAVE PATIENT PROVIDE UPDATED CONTACT INFORMATION. - PLEASE PROVIDE CHW CONTACT # [phone] TO HELP PATIENT ESTABLISH CARE WITH A PROVIDER. OR CALL CHW DURING BUSINESS HOURS AND CHW WILL COME VISIT WITH PATIENT IF CHW IS AVAILABLE. E.D. VISIT COUNT ([address] [facility] [facility] [place] [address] [facility] [place] TOTAL 12 NOTE: Visits indicate total known visits. ED/UCC VISIT TRACKING (12 MO.) 11/28/2018 17:[address] [facility] [address] [facility] [place] TYPE: Emergency COMPLAINT: - CONSTIPATION,ABD PAIN 11/21/2018 16:03 [facility] [place] TYPE: Emergency COMPLAINT: - URINE PROBLEM,HEADACHE DIAGNOSES: - Anxiety disorder, unspecified - Type 2 diabetes mellitus with hyperglycemia - Allergy status to narcotic agent status - Hypothyroidism, unspecified - MCC (current) use of aspirin - Old myocardial infarction - Personal history of transient ischemic attack (TIA), and 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 residual deficits - Allergy status to penicillin - terminal worker (current) use of insulin - Nicotine dependence, unspecified, uncomplicated - Other half-way (current) drug therapy - Essential (primary) hypertension 10/25/2018 09:43 [facility] [place] [facility] TYPE: Emergency DIAGNOSES: 0. HEADACHE DIZZINESS 10/21/2018 18:44 [facility] [place] [facility] TYPE: Emergency DIAGNOSES: 0. SINUS PAIN AND PRESSURE CONGESTION 10/19/2018 15:45 [facility] [place] [facility] TYPE: Emergency DIAGNOSES: 0. ABSCESS IN NOSE 10/05/2018 08:20 [facility] [place] TYPE: Emergency COMPLAINT: - CONSTIPATION DIAGNOSES: - MCC (current) use of aspirin - Nicotine dependence, unspecified, uncomplicated - Personal history of other infectious and parasitic diseases - Post-traumatic stress disorder, unspecified - Type 2 diabetes mellitus without complications - Constipation, unspecified - Allergy status to penicillin - Allergy status to narcotic agent status - Old myocardial infarction - MCC (current) use of oral hypoglycemic drugs - Hypothyroidism, unspecified - terminal worker (current) use of insulin - Personal history of transient ischemic attack (TIA), and 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 residual deficits - Other half-way (current) drug therapy 09/03/2018 15:35 [facility] [place] TYPE: Emergency COMPLAINT: - BLOOD SUGAR PROBLEM DIAGNOSES: - Nicotine dependence, unspecified, uncomplicated - Hypothyroidism, unspecified - Essential (primary) hypertension - Type 2 diabetes mellitus with hyperglycemia - MCC (current) use of aspirin - MCC (current) use of insulin - Old myocardial infarction - Other half-way (current) drug therapy - Allergy status to [...] unspecified - Post-traumatic stress disorder, unspecified - MCC (current) use of insulin - Allergy status to penicillin - Essential (primary) hypertension - Other half-way (current) drug therapy - Non-pressure chronic ulcer [...] residual deficits - Old myocardial infarction - MCC (current) use of aspirin 08/12/2018 07:34 [facility] [place] TYPE: Emergency COMPLAINT: - FALL DIAGNOSES: - Nicotine dependence, unspecified, uncomplicated - Personal history of other infectious and parasitic diseases - Hypothyroidism, unspecified - Allergy status to narcotic agent status - Fall on same level from slipping, tripping and stumbling with subsequent striking against unspecified object, initial encounter - MCC (current) use of insulin - Other regional intermodal truck driver (current) drug therapy - [...] DIAGNOSES: - Allergy status to penicillin - MCC (current) use of aspirin - Hypothyroidism, unspecified - Old myocardial infarction - Post-traumatic stress disorder, unspecified - MCC (current) use of insulin - Type 2 diabetes mellitus without complications - Personal history of transient ischemic attack (TIA), and 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 residual deficits - Other half-way (current) drug therapy - Anxiety disorder, unspecified [...] to penicillin - Old myocardial infarction - MCC (current) use of insulin - Personal history of other infectious and parasitic diseases - Personal history of transient ischemic attack (TIA), and 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 residual deficits - Essential (primary) hypertension - Anxiety disorder, unspecified - Other half-way (current) drug therapy - Type 2 diabetes mellitus without complications - Cellulitis of right lower limb - Hypothyroidism, unspecified 08/01/2018 16:28 [facility] [place] TYPE: Emergency COMPLAINT: - HIGH BLOOD SUGAR DIAGNOSES: - Other regional intermodal truck driver (current) drug therapy - Allergy status to narcotic agent status - MCC (current) use of aspirin - MCC (current) use of insulin - Allergy status to penicillin - Nicotine dependence, unspecified, uncomplicated - Type 2 diabetes mellitus with hyperglycemia - Type 2 diabetes mellitus without complications INPATIENT VISIT TRACKING (12 MO.) No inpatient visits to display in this time frame [email or web address]
== END 2018-11-28 18:52 | disposition home or self-care (01) ==
LOC: ED 17:23
DX: K59.00 Constipation, unspecified (principal); I25.2 Old myocardial infarction; E11.9 Type 2 diabetes mellitus without complications; I10 Essential (primary) hypertension; F17.200 Nicotine dependence, unspecified, uncomplicated; Z88.0 Allergy status to penicillin; Z88.5 Allergy status to narcotic agent; Z79.899 Other long term (current) drug therapy; Z79.4 Long term (current) use of insulin; Z79.82 Long term (current) use of aspirin
CPT/HCPCS: 74022; 99283-25

== ENCOUNTER 2019-02-05 16:54 | Emergency (ER) | payer SELFPAY ==
[~2019-02-05] VITALS: Ht 172.7 cm; Wt 86.2 kg
[2019-02-05] MEDS ORDERED: CHLORPROMAZINE50 MG PO (19:07)
[2019-02-05] MEDS ORDERED: CELEXA40 MG PO (19:07)
== END 2019-02-05 19:18 | disposition home or self-care (01) ==
LOC: ED 16:54
DX: F32.9 Major depressive disorder, single episode, unspecified (principal); Z76.0 Encounter for issue of repeat prescription; E11.9 Type 2 diabetes mellitus without complications; I25.2 Old myocardial infarction; F41.9 Anxiety disorder, unspecified; I10 Essential (primary) hypertension; E03.9 Hypothyroidism, unspecified; F31.9 Bipolar disorder, unspecified; F42.9 Obsessive-compulsive disorder, unspecified; F17.200 Nicotine dependence, unspecified, uncomplicated; Z88.0 Allergy status to penicillin; Z86.73 Personal history of transient ischemic attack (TIA), and 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 residual deficits; Z88.5 Allergy status to narcotic agent; Z79.4 Long term (current) use of insulin; Z79.82 Long term (current) use of aspirin; Z79.899 Other long term (current) drug therapy
CPT/HCPCS: 80053; 80176; 81001; 84443; 85025; 99284; G0480

== ENCOUNTER 2019-02-08 13:59 | Emergency (ER) | payer SELFPAY ==
[~2019-02-08] VITALS: Ht 172.7 cm; Wt 86.2 kg
[~2019-02-08 13:59] MED LIST changes: +CHLORPROMAZINE50 MG PO
== END 2019-02-08 15:12 | disposition home or self-care (01) ==
LOC: ED 13:59
DX: R11.10 Vomiting, unspecified (principal); Z53.21 Procedure and treatment not carried out due to patient leaving prior to being seen by health care provider

== ENCOUNTER 2019-02-08 16:23 | Emergency (ER) | payer SELFPAY ==
[~2019-02-08] VITALS: Ht 172.7 cm; Wt 86.2 kg
== END 2019-02-08 19:21 | disposition home or self-care (01) ==
LOC: ED 16:23
DX: E11.65 Type 2 diabetes mellitus with hyperglycemia (principal); I10 Essential (primary) hypertension; I25.2 Old myocardial infarction; E03.9 Hypothyroidism, unspecified; F41.9 Anxiety disorder, unspecified; F31.9 Bipolar disorder, unspecified; F17.200 Nicotine dependence, unspecified, uncomplicated; Z88.0 Allergy status to penicillin; Z86.73 Personal history of transient ischemic attack (TIA), and 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 residual deficits; Z88.5 Allergy status to narcotic agent; Z79.4 Long term (current) use of insulin; Z79.82 Long term (current) use of aspirin; Z79.899 Other long term (current) drug therapy
CPT/HCPCS: 36415; 80053; 80176; 81001; 84443; 85025; 99283; G0480